=== PATIENT | male | born 1940 | race Caucasian/White ===

== ENCOUNTER 2017-10-11 22:27 | Emergency (ER) | payer BC, MEDICARE, OTHER ==
[~2017-10-11] VITALS: Ht 180.3 cm; Wt 90.0 kg
[~2017-10-11 22:27] MED LIST: BUPR75TA6 PO; LISI-466 PO; MINO100T2 PO; PRED10TA PO; SIMV10TA PO
[2017-10-11 23:00] LABS: BASOPHILS # (AUTO) 0.03 x10^3/uL (0-0.1); BASOPHILS % (AUTO) 0 % (0-1); EOSINOPHILS # (AUTO) 0.44 x10^3/uL (0-0.4); EOSINOPHILS % (AUTO) 5 % (1-7); LYMPHOCYTES # (AUTO) 2.69 x10^3/uL (1-3.4); LYMPHOCYTES % (AUTO) 33 % (22-44); MD NO; MEAN CORPUSCULAR HEMOGLOBIN 32.9 pg (27.5-34.5); MEAN CORPUSCULAR HGB CONC 33.5 g/dL (33.2-36.2); MEAN CORPUSCULAR VOLUME 98.2 fL (81-97); MEAN PLATELET VOLUME 8.6 fL (7.4-10.4); MONOCYTES # (AUTO) 0.61 x10^3/uL (0.2-0.8); MONOCYTES % (AUTO) 8 % (2-9); NEUTROPHILS # (AUTO) 4.31 x10^3/uL (1.8-6.8); NEUTROPHILS % (AUTO) 53 % (42-75); PLATELET COUNT 210 x10^3/uL (130-400); RED BLOOD COUNT 4.75 x10^6/uL (4.38-5.82); RED CELL DISTRIBUTION WIDTH 14.5 % (9.4-14.8)
[2017-10-11 23:11] LABS: ALANINE AMINOTRANSFERASE 52 U/L (12-78); ALBUMIN 3.8 g/dL (3.4-5.0); ANION GAP 9 mmol/L (5-15); CHLORIDE 108 mmol/L (98-107); CREATININE 0.95 mg/dL (0.7-1.3)
[2017-10-11 23:13] LABS: ALKALINE PHOSPHATASE 89 U/L (45-117); BILIRUBIN,TOTAL 0.3 mg/dL (0.2-1.0); TOTAL PROTEIN 6.9 g/dL (6.4-8.2)
[2017-10-11 23:34] VITALS: BP 131/74
== END 2017-10-12 00:42 | disposition home or self-care (01) ==
LOC: ED 10-12 00:02
DX: F10.120 Alcohol abuse with intoxication, uncomplicated (principal); E78.00 Pure hypercholesterolemia, unspecified; W01.0XXA Fall on same level from slipping, tripping and stumbling without subsequent striking against object, initial encounter; Y93.89 Activity, other specified; Y99.8 Other external cause status; Y92.89 Other specified places as the place of occurrence of the external cause; G89.29 Other chronic pain
CPT/HCPCS: 36415; 70450; 80053; 80307; 85025; 93005; 99285

== ENCOUNTER 2018-07-05 11:10 | Inpatient (IN) | payer MEDICARE ==
[~2018-07-05] VITALS: Ht 180.3 cm; Wt 93.0 kg
[2018-07-05] MEDS ORDERED: ASPIRIN 81 MG TABLET CHEW ONE (11:41)
[2018-07-05] MEDS ORDERED: NITROGLYCERIN SINGLE TAB 0.4 MG SL ONE ×2 (11:45→12:00)
[2018-07-05] MEDS ORDERED: ASPIRIN 81 MG TABLET CHEW PO ONE (12:00)
[2018-07-05] MEDS ORDERED: SODIUM CHLORIDE FLUSH 10ML SYR IVF ONE (12:00)
[2018-07-05 12:09] LABS: BASOPHILS # (AUTO) 0.03 x10^3/uL (0-0.1); BASOPHILS % (AUTO) 0 % (0-1); EOSINOPHILS # (AUTO) 0.09 x10^3/uL (0-0.4); EOSINOPHILS % (AUTO) 1 % (1-7); LYMPHOCYTES # (AUTO) 2.22 x10^3/uL (1-3.4); LYMPHOCYTES % (AUTO) 27 % (22-44); MD NO; MEAN CORPUSCULAR HEMOGLOBIN 33.5 pg (27.5-34.5); MEAN CORPUSCULAR HGB CONC 33.8 g/dL (33.2-36.2); MEAN CORPUSCULAR VOLUME 98.9 fL (81-97); MONOCYTES # (AUTO) 0.77 x10^3/uL (0.2-0.8); MONOCYTES % (AUTO) 9 % (2-9); NEUTROPHILS # (AUTO) 5.19 x10^3/uL (1.8-6.8); NEUTROPHILS % (AUTO) 63 % (42-75); PLATELET COUNT 224 x10^3/uL (130-400); RED CELL DISTRIBUTION WIDTH 14.6 % (9.4-14.8)
[2018-07-05 12:20] LABS: ALANINE AMINOTRANSFERASE 246 U/L (12-78); ALBUMIN 3.5 g/dL (3.4-5.0); ANION GAP 8 mmol/L (5-15); CALCIUM 8.8 mg/dL (8.5-10.1); CHLORIDE 107 mmol/L (98-107)
[2018-07-05 12:25] LABS: ALKALINE PHOSPHATASE 161 U/L (45-117); BILIRUBIN,TOTAL 0.7 mg/dL (0.2-1.0); CREATININE 0.86 mg/dL (0.7-1.3); TOTAL PROTEIN 6.6 g/dL (6.4-8.2); TROPONIN I < 0.015 ng/mL (0.000-0.045)
[2018-07-05 12:29] LABS: INTERNATIONAL NORMALIZED RATIO 0.98 (0.93-1.1); PROTHROMBIN TIME 10.1 Seconds (9.6-11.5)
[2018-07-05] MEDS ORDERED: DOCUSATE 100 MG CAPSULE PO PRN (14:00)
[2018-07-05] MEDS ORDERED: ONDANSETRON 2MG/ML, 2ML IVPush PRN (14:00)
[2018-07-05] MEDS ORDERED: POLYETHYLENE GLYCOL 17 GM PACKET PO PRN (14:00)
[2018-07-05] MEDS ORDERED: ENALAPRILAT 1.25 MG/ML, 2ML IVPush PRN (14:00)
[2018-07-05] MEDS ORDERED: BISACODYL 10 MG SUPP PR PRN (14:00)
[2018-07-05] MEDS ORDERED: morphine SULFATE 10 MG/ML, 1ML IVPush PRN (14:00)
[2018-07-05] MEDS: LACTATED RINGERS 1,000 ML IV SCH ×2 (14:12→22:53)
[2018-07-05 15:30] VITALS: BP 184/90
[2018-07-05] MEDS ORDERED: VIT52OIL3 PO (16:11)
[2018-07-05] MEDS ORDERED: COLC0.6T37 PO (16:11)
[2018-07-05 17:49] VITALS: BP 168/91
[2018-07-05 18:20] LABS: TROPONIN I < 0.015 ng/mL (0.000-0.045)
[2018-07-05 20:28] VITALS: BP 138/59
[2018-07-05] MEDS ORDERED: VIT1CAPS16 PO (23:08)
[2018-07-05] MEDS ORDERED: RED600TA PO (23:08)
[2018-07-05] MEDS ORDERED: ASPI-621 PO (23:08)
[2018-07-05] MEDS ORDERED: OMEG1CAP6 PO (23:08)
[2018-07-05] MEDS ORDERED: ALLO300T PO (23:08)
[2018-07-05] MEDS ORDERED: CHOL10003 PO (23:08)
[2018-07-05] MEDS ORDERED: [UNRECOGNIZED DRUG - CODE] PO (23:08)
[2018-07-05] MEDS ORDERED: [UNRECOGNIZED DRUG - OTHER] PO (23:08)
[2018-07-05 23:28] LABS: TROPONIN I < 0.015 ng/mL (0.000-0.045)
[2018-07-06 01:57] VITALS: BP 146/83
[2018-07-06 05:31] LABS: ANION GAP 11 mmol/L (5-15); CALCIUM 8.4 mg/dL (8.5-10.1); CHLORIDE 106 mmol/L (98-107)
[2018-07-06 05:33] LABS: BASOPHILS # (AUTO) 0.04 x10^3/uL (0-0.1); BASOPHILS % (AUTO) 1 % (0-1); EOSINOPHILS # (AUTO) 0.18 x10^3/uL (0-0.4); EOSINOPHILS % (AUTO) 3 % (1-7); LYMPHOCYTES # (AUTO) 2.13 x10^3/uL (1-3.4); LYMPHOCYTES % (AUTO) 33 % (22-44); MD NO; MEAN CORPUSCULAR HEMOGLOBIN 33.1 pg (27.5-34.5); MEAN CORPUSCULAR HGB CONC 33.6 g/dL (33.2-36.2); MEAN CORPUSCULAR VOLUME 98.7 fL (81-97); MEAN PLATELET VOLUME 9.2 fL (7.4-10.4); MONOCYTES # (AUTO) 0.59 x10^3/uL (0.2-0.8); MONOCYTES % (AUTO) 9 % (2-9); NEUTROPHILS # (AUTO) 3.53 x10^3/uL (1.8-6.8); NEUTROPHILS % (AUTO) 55 % (42-75); PLATELET COUNT 192 x10^3/uL (130-400); RED BLOOD COUNT 4.39 x10^6/uL (4.38-5.82); RED CELL DISTRIBUTION WIDTH 14.6 % (9.4-14.8)
[2018-07-06 05:34] LABS: ALANINE AMINOTRANSFERASE 175 U/L (12-78); ALKALINE PHOSPHATASE 144 U/L (45-117); BILIRUBIN,TOTAL 0.8 mg/dL (0.2-1.0); CHOLESTEROL, TOTAL 160 mg/dL (140-239); CREATININE 0.72 mg/dL (0.7-1.3); HDL CHOL % 49 % (26-37); HDL CHOLESTEROL (DIRECT) 79 mg/dL (40-60); LDL CHOLESTEROL,CALCULATED 54 mg/dL (54-169); LDL/HDL RATIO 0.7 (0.5-3.0); TOTAL PROTEIN 5.9 g/dL (6.4-8.2); TRIGLYCERIDES 135 mg/dL (50-200); VLDL CHOLESTEROL 27 mg/dL (0-25)
[2018-07-06 07:53] VITALS: BP 150/82
[2018-07-06] MEDS ORDERED: REGADENOSON 0.4 MG/5 ML SYRINGE ONE (10:26)
[2018-07-06 14:13] VITALS: BP 153/81
[2018-07-06] MEDS ORDERED: TEMPLATE NON-FORMULARY MED. (Red Yeast Rice** 1,200 MG) PO SCH (21:00)
[2018-07-06] MEDS ORDERED: ALLOPURINOL 300 MG TABLET PO SCH (21:00)
[2018-07-06 21:09] VITALS: BP 142/84
[2018-07-07 01:20] VITALS: BP 148/73
[2018-07-07 05:31] LABS: BASOPHILS # (AUTO) 0.03 x10^3/uL (0-0.1); BASOPHILS % (AUTO) 0 % (0-1); EOSINOPHILS # (AUTO) 0.17 x10^3/uL (0-0.4); EOSINOPHILS % (AUTO) 3 % (1-7); LYMPHOCYTES # (AUTO) 1.82 x10^3/uL (1-3.4); LYMPHOCYTES % (AUTO) 29 % (22-44); MD NO; MEAN CORPUSCULAR HEMOGLOBIN 33.1 pg (27.5-34.5); MEAN CORPUSCULAR HGB CONC 33.7 g/dL (33.2-36.2); MEAN CORPUSCULAR VOLUME 98.4 fL (81-97); MEAN PLATELET VOLUME 8.6 fL (7.4-10.4); MONOCYTES # (AUTO) 0.74 x10^3/uL (0.2-0.8); MONOCYTES % (AUTO) 12 % (2-9); NEUTROPHILS # (AUTO) 3.47 x10^3/uL (1.8-6.8); NEUTROPHILS % (AUTO) 56 % (42-75); PLATELET COUNT 210 x10^3/uL (130-400); RED BLOOD COUNT 4.54 x10^6/uL (4.38-5.82); RED CELL DISTRIBUTION WIDTH 14.5 % (9.4-14.8)
[2018-07-07 05:51] LABS: ALBUMIN 3.3 g/dL (3.4-5.0); CHLORIDE 109 mmol/L (98-107)
[2018-07-07 05:58] LABS: ALANINE AMINOTRANSFERASE 129 U/L (12-78); ALKALINE PHOSPHATASE 145 U/L (45-117); ANION GAP 7 mmol/L (5-15); BILIRUBIN,TOTAL 0.7 mg/dL (0.2-1.0); CALCIUM 8.5 mg/dL (8.5-10.1); CREATININE 0.66 mg/dL (0.7-1.3); TOTAL PROTEIN 6.2 g/dL (6.4-8.2)
[2018-07-07] MEDS ORDERED: MINOCYCLINE 50 MG PO SCH (06:00)
[2018-07-07 07:20] VITALS: BP 147/88
[2018-07-07] MEDS ORDERED: BUPROPION 75 MG TABLET PO SCH (09:00)
[2018-07-07] MEDS ORDERED: MULTIVITAMINS/MINERALS TABLET PO SCH (09:00)
[2018-07-07] MEDS ORDERED: CHOLECALCIFEROL 1,000 UNIT TABLET PO SCH (09:00)
[2018-07-07] MEDS ORDERED: VITAMIN E 400 UNITS CAPSULE PO SCH (09:00)
[2018-07-07] MEDS ORDERED: OMEGA-3/FISH OIL CAPSULE PO SCH (09:00)
[2018-07-07] MEDS ORDERED: ASPIRIN 81 MG TABLET EC PO SCH (09:00)
== END 2018-07-07 13:00 | disposition home or self-care (01) | DRG 440 ==
LOC: ED 12:13 → EDIP 13:50 → 5SO 15:10
PROVIDERS: ADMIT Hospitalist; ATTEND Hospitalist
DX: K85.90 Acute pancreatitis without necrosis or infection, unspecified (principal); I11.9 Hypertensive heart disease without heart failure; F32.9 Major depressive disorder, single episode, unspecified; E78.5 Hyperlipidemia, unspecified; Z66 Do not resuscitate; R74.0 Nonspecific elevation of levels of transaminase and lactic acid dehydrogenase [LDH]; M10.9 Gout, unspecified; E55.9 Vitamin D deficiency, unspecified; Z87.891 Personal history of nicotine dependence; Z90.89 Acquired absence of other organs
CPT/HCPCS: 36415; 71045; 74181; 76700; 78452; 80053; 80061; 83690; 83880; 84484; 85025; 85610; 93005; 93017; 99285; G0378; J2785; A9502; C9898; J7120